=== PATIENT | female | born 1995 | race American Indian/Alaskan Native ===

== ENCOUNTER 2020-08-26 14:55 | Outpatient (CLI) | payer MEDICAID ==
[2020-08-26 15:47] LABS: Bilirubin,Urine NEG (Negative); Blood,Urine NEG (Negative); Color,Urine Yellow (Yellow); Mucus,Urine FEW /HPF; Protein,Urine <15 mg/dL mg/dL (Negative); Urobilinogen,Urine < 2.0 mg/dL (<2.0)
[2020-08-26 16:00] VITALS: BP 106/62
[2020-08-26 17:24] LABS: Hematocrit 37.2 % (30.3-42.9); Hemoglobin 11.8 gm/dl (10.1-14.3); Mean Corpuscular HGB Conc 32 % (30-34); Mean Corpuscular Volume 88 fl (79-97); Platelet Count 167 K/mm3 (140-440); Red Blood Count 4.22 M/mm3 (3.65-5.03); Red Cell Distribution Width 19.6 % (13.2-15.2)
[2020-08-26 17:50] LABS: Amphetamine Screen,Urine Negative; Benzodiazepines Screen,Urine Negative; Cannabinoid Screen,Urine Negative; Cocaine Screen,Urine Negative; Methadone Screen,Urine Negative; Opiate Screen,Urine Negative
== END 2020-08-26 18:53 | disposition home or self-care (01) ==
LOC: TRG 14:55 → APU 14:55 → TRG 18:53
PROVIDERS: ATTEND Obstetrics & Gynecology
DX: O26.892 Other specified pregnancy related conditions, second trimester (principal); R42 Dizziness and giddiness; R11.2 Nausea with vomiting, unspecified; Z3A.21 21 weeks gestation of pregnancy
CPT/HCPCS: 36415; 59025; 80307; 81001; 85025

== ENCOUNTER 2022-02-23 14:42 | Emergency (ER) | payer MEDICAID ==
[2022-02-23 14:53] VITALS: BP 109/59
--- NOTE | 2022-02-26 18:38 | Electrocardiograph Report ---
[facility] Test Date: 2022-02-23 Test Time: 15:02:59 Pat Name: MARKOS THOMAS Department: Room: Gender: F [employer]: ER : 1995 Requested By: CAT VALDEZ Order Number: [id number] Reading MD: Fercho Sanabria Measurements Intervals [place] Rate: 64 P: 65 CA: 143 QRS: 46 QRSD: 87 T: 31 QT: 406 QTc: 419 Interpretive Statements Sinus rhythm No previous ECG available for comparison Electronically Signed On 02-26-2022 18:38:36 EDT by Fercho aSnabria
== END 2022-02-24 00:55 | disposition left against medical advice (07) ==
LOC: ED 14:42
DX: R07.9 Chest pain, unspecified (principal); M54.9 Dorsalgia, unspecified; Z53.21 Procedure and treatment not carried out due to patient leaving prior to being seen by health care provider
CPT/HCPCS: 93005